=== PATIENT | male | born 1965 | race Caucasian/White ===

== ENCOUNTER → 2024-12-25 09:09 | Outpatient (REF) | payer OTHER, SELFPAY ==
--- NOTE | 2024-12-25 11:06 | CARDSERVLU ---
Echocardiogram with Lumason completed after protocol screening completed. Allergies verified.
Patent IV site: _Left antecubital 22 G PC____
IV site flushed with 0.9% NaCl pre and post administration.
Diluted bolus method utilized to enhance visualization of ventricular malik.
Total volume given: __2.5__ mL
Patient tolerated all procedures well without complications.
Heplock D/C at 1010, site clear , no redness,no edema. Pressure held, no bleeding. 2x2 applied and taped. Pt offers no complaints.
== END ==
LOC: RCS 09:09
PROVIDERS: ATTENDING PHYSICIAN Internal Medicine Cardiovascular Disease; FAMILY PHYSICIAN Family Medicine
DX: Z95.810 Presence of automatic (implantable) cardiac defibrillator (principal)
CPT/HCPCS: 93306; Q9950